=== PATIENT | female | born 1985 | race Caucasian/White ===

== ENCOUNTER 2025-02-07 14:20 | Emergency (ER) | payer OTHER ==
[~2025-02-07] VITALS: Ht 162.6 cm; Wt 70.0 kg
[2025-02-07 14:24] VITALS: O2SAT 99
[2025-02-07 14:33] VITALS: BP 130/82; PULSE 85; RESP 16; TEMP 36.7; O2SAT 98
== END 2025-02-07 16:13 | disposition left against medical advice (07) ==
LOC: ER 14:20
DX: M54.2 Cervicalgia (principal); Z53.21 Procedure and treatment not carried out due to patient leaving prior to being seen by health care provider

== ENCOUNTER 2025-03-25 16:50 | Emergency (ER) | payer OTHER ==
[~2025-03-25] VITALS: Ht 160 cm; Wt 72.0 kg
[2025-03-25 17:00] VITALS: O2SAT 100
[2025-03-25 17:44] LABS: CHLORIDE 100 mEq/L (98-107); POTASSIUM 3.6 mEq/L (3.5-5.1); PROTHROMBIN TIME 10.4 sec (9.6-11.0); SODIUM 135 mEq/L (136-145)
[2025-03-25 17:46] LABS: CARBON DIOXIDE 24 mEq/L (21-32); HEMATOCRIT. 37.1 % (36.0-48.0); HEMOGLOBIN. 12.4 g/dL (12.0-16.0); MEAN CORPUSCULAR HEMOGLOBIN 29.9 pg (28.0-32.0); MEAN CORPUSCULAR HGB CONC 33.4 g/dL (31.0-37.0); MEAN CORPUSCULAR VOLUME 89.5 fL (81.0-99.0); MEAN PLATELET VOLUME 7.7 fl (7.4-10.4); PLATELET 290 x1000/uL (130-400); RED BLOOD CELL COUNT 4.15 mill/uL (4.2-5.4); RED CELL DISTRIBUTION WIDTH 13.7 % (11.6-14.6); WHITE BLOOD COUNT 14.2 x1000/uL (4.5-11.0)
[2025-03-25 17:47] LABS: CALCIUM 9.6 mg/dL (8.7-10.4)
[2025-03-25 17:50] LABS: DIFFERENTIAL COMMENT 1
[2025-03-25 17:51] LABS: CREATININE 0.9 mg/dL (0.6-1.0)
[2025-03-25 17:52] LABS: GLUCOSE 121 mg/dL (70-105); UREA NITROGEN BLOOD 9 mg/dL (9-23)
[2025-03-25 17:53] LABS: ALBUMIN 4.7 g/dL (3.2-4.8)
[2025-03-25 17:54] LABS: ALANINE AMINOTRANSFERASE 25 IU/L (10-49); ASPARTATE AMINOTRANSFERASE 21 IU/L (<34); BILIRUBIN DIRECT 0.3 mg/dL (<=3.0); BILIRUBIN TOTAL 0.8 mg/dL (0.1-1.0)
[2025-03-25 17:56] LABS: HCG SCREEN NEGATIVE
[2025-03-25 18:26] LABS: PLATELET ESTIMATE NORMAL
[2025-03-25] MEDS ORDERED: DICYCLOMINE 10 MG/5 ML ORAL SYR PO STA (19:01)
[2025-03-25] MEDS: MAGNESIUM/ALUMINUM HYDROXIDE/SIMETHICONE 30ML UDC PO STA (19:13)
[2025-03-25] MEDS: ONDANSETRON 4MG ODT PO STA (19:13)
[2025-03-25] MEDS: KETOROLAC 30MG/ML VIAL IM STA (19:13)
[2025-03-25] MEDS: DICYCLOMINE HCL 10MG CAPSULE PO SCH (19:14)
[2025-03-25 19:15] LABS: CLARITY URINE TURBID (CLEAR); GLUCOSE URINE NEGATIVE (NEGATIVE); KETONES URINE TRACE (NEGATIVE); LEUKOCYTE ESTERASE URINE 3+ (NEGATIVE); NITRITE URINE NEGATIVE (NEGATIVE); OCCULT BLOOD URINE 3+ (NEGATIVE); PH URINE 5.5 (4.5-8.0); PROTEIN URINE 2+ (NEGATIVE); SPECIFIC GRAVITY URINE 1.019 (1.005-1.030)
[2025-03-25 19:50] LABS: COLOR URINE YELLOW (YELLOW)
[2025-03-25 19:51] LABS: WBC URINE 50-100 /hpf (0-2)
[2025-03-25 19:52] LABS: BACTERIA URINE 2+; RBC URINE 0-2 /hpf (0-2); SQUAMOUS EPITHELIAL CELL URINE 1+ /lpf (RARE/1+)
[2025-03-25 19:53] LABS: COARSE GRANULAR CASTS URINE 0-5 /lpf; MUCUS URINE 1+ /lpf (< = 2+)
[2025-03-25] MEDS ORDERED: CEFP200T14 MT (21:22)
[2025-03-25 21:58] VITALS: BP 110/67; PULSE 85; RESP 20; TEMP 36.8; O2SAT 100
== END 2025-03-25 22:00 | disposition home or self-care (01) ==
LOC: ER 16:50
DX: N39.0 Urinary tract infection, site not specified (principal); Z90.49 Acquired absence of other specified parts of digestive tract
CPT/HCPCS: 99285; 76700; 80076; 80048; 81003; 81025; 84703; 83690; 85025; 85610; 87086; 87186; 87077; 36415; 96372; J1885; Q0162